=== PATIENT | female | born 1945 | race Two or more races ===

== ENCOUNTER 2018-05-06 08:00 | Inpatient (IN) | payer OTHER ==
[~2018-05-06] VITALS: Ht 149.9 cm; Wt 50.8 kg
[2018-05-06] MEDS ORDERED: COZAAR25 MG PO (16:35)
[2018-05-06] MEDS ORDERED: GLUCOPHAGE XR500 MG PO (16:35)
[2018-05-06] MEDS ORDERED: VENTOLIN HFA18 GM IH (16:36)
[2018-05-06] MEDS ORDERED: BREO ELLIPTA I1 EACH IH (16:36)
[2018-05-06] MEDS ORDERED: LIPITOR20 MG PO (16:36)
[2018-05-06] MEDS ORDERED: PLAVIX75 MG PO (16:36)
[2018-05-06] MEDS ORDERED: FOSAMAX70 MG PO (16:37)
[2018-05-06] MEDS ORDERED: NEURONTIN600 MG PO (16:37)
== END 2018-05-13 19:20 | disposition home or self-care (01) | DRG 330 ==
LOC: SURH 05-10 07:58 → O/R 05-10 07:58 → SURH 05-10 08:00
PROVIDERS: ADMIT Colon & Rectal Surgery
PROC: 0DJD8ZZ Inspection of Lower Intestinal Tract, Via Natural or Artificial Opening Endoscopic (ICD-10-PCS; 2018-05-10)
PROC: 0DTN4ZZ Resection of Sigmoid Colon, Percutaneous Endoscopic Approach (ICD-10-PCS; principal; 2018-05-10 09:45)
DX: K57.20 Diverticulitis of large intestine with perforation and abscess without bleeding (principal); K92.1 Melena; E11.40 Type 2 diabetes mellitus with diabetic neuropathy, unspecified; I11.9 Hypertensive heart disease without heart failure; I25.10 Atherosclerotic heart disease of native coronary artery without angina pectoris; J45.998 Other asthma